=== PATIENT | male | born 1960 | race Caucasian/White ===

== ENCOUNTER 2022-12-24 21:50 | Inpatient (IN) ==
[2022-12-24 22:32] LABS: Basophils # (auto) 0.03 K/uL (0-0.2); Basophils % (auto) 0.3 %; Eosinophils # (auto) 0.04 K/uL (0-0.50); Eosinophils % (auto) 0.4 %; Hematocrit (blood only) 41.5 % (42.0-52.0); Hemoglobin 14.1 g/dl (14.0-18.0); Immature Granulocytes # (auto) 0.07 K/uL (0.01-0.20); Immature Granulocytes % (auto) 0.6 %; Lymphocytes # (auto) 1.37 K/uL (1.2-3.4); Lymphocytes % (auto) 12.5 %; Mean Corpuscular Volume 94.1 fL (80.0-100.0); Mean Platelet Volume 10.3 fL (9.4-12.4); Monocytes # (auto) 0.78 K/uL (0.11-0.59); Monocytes % (auto) 7.1 %; Neutrophils # (auto) 8.66 K/uL (1.40-6.50); Neutrophils % (auto) 79.1 %; Platelet Count 130 K/uL (130-400); RDW Coefficient of Variation 12.9 % (11.5-14.5); RDW Standard Deviation 44.5 fL (36.4-46.3); Red Blood Count 4.41 M/uL (4.70-6.10); White Blood Count 10.95 K/ul (4.8-10.8)
[2022-12-24 22:48] LABS: Albumin Globulin Ratio 1.2 (0.9-2); Albumin Level 4.2 gm/dl (3.4-5.0); Bilirubin,Total 0.6 mg/dl (0.2-1.0); Calcium 9.3 mg/dl (8.5-10.1); Creatinine Clr Calc Pharmacy 73.9 ml/min; Est GFR (African American) 68.4 ml/min; Globulin 3.5 gm/dl (2.5-4.0); Magnesium 1.8 mg/dl (1.7-2.4); Potassium 4.2 mmol/L (3.5-5.1); Total Protein 7.7 gm/dl (6.0-8.3)
[2022-12-24 22:58] LABS: Partial Thromboplastin Ratio 0.9; Partial Thromboplastin Time 23.6 Seconds (21.0-31.0); Prothrombin Time 10.9 Seconds (9.0-12.0)
--- NOTE | 2022-12-24 23:10 | Emergency Department Note ---
History of Present Illness General Chief complaint: Infection Stated complaint: RASH ON LEG, SWELLING IN LEG Time Seen by Provider: 12/24/22 22:47 History of Present Illness 62-year-old male presents emergency department with area of redness that started on the anterior earl yesterday while he was working. Patient is a prisoner. Patient denies being diabetic. Patient states no pain. Patient denies any trau ma. Patient denies being on blood thinners. Patient states that the redness continued to progress from the distal anterior earl to the proximal. Patient states he was wearing a brace yesterday. Home Medications Medication Instructions Recorded Confirmed Type acetaminophen 500 mg tablet 1,000 mg PO TID PRN PAIN/FEVER 12/24/22 12/24/22 History (Tylenol Extra Strength) ciclesonide 80 mcg/actuation 1 puff inhalation BID 12/24/22 12/24/22 History aerosol inhaler (Alvesco) fluoxetine 20 mg tablet 20 mg PO DAILY 12/24/22 12/24/22 History hydrochlorothiazide 25 mg tablet 25 mg PO DAILY 12/24/22 12/24/22 History hydroxyzine pamoate 25 mg capsule 25 mg PO DAILY PRN Anxiety 12/24/22 12/24/22 History (Vistaril) magnesium oxide 400 mg PO DAILY 12/24/22 12/24/22 History mirtazapine 15 mg tablet 15 mg PO HS 12/24/22 12/24/22 History multivitamin,tx-minerals 1 tab PO DAILY 12/24/22 12/24/22 History naproxen 375 mg tablet 375 mg PO BID PRN Pain 12/24/22 12/24/22 History omeprazole 20 mg tablet,delayed 20 mg PO DAILY 12/24/22 12/24/22 History release thiamine HCl (vitamin B1) 50 mg 100 mg PO DAILY 12/24/22 12/24/22 History tablet (Vitamin B-1) Allergies Allergy/AdvReac Type Severity Reaction Status Date / Time clams Allergy Unknown ON MED LIST Verified 12/24/22 23:21 spinach Allergy Unknown ON MED LIST Verified 12/24/22 23:21 Past Med/Surg History Social History Smoking Status: Former smoker Feels Safe at Home: Yes Immunizations: Past medical history denies past surgical history amputation of right hand fingers; back surgery right knee reconstructive surgery Review of Systems A total of 10 systems reviewed and were otherwise negative Constitutional: no fever and no body aches Respiratory: no cough Cardiovascular: no chest pain Integumentary: + rash Physical Exam Vital Signs Vital Signs - 24 hr 12/24/22 21:54 12/25/22 00:00 12/25/22 00:00 Temperature 37.7 C H Temperature Source Temporal Artery Scan Pulse Rate 100 H Pulse Rate [Apical] 82 Respiratory Rate 18 18 Respiratory Effort / Characteristics Non-Labored Non-Labored Spontaneous Respiratory Depth Normal Normal Respiratory Pattern Regular Blood Pressure 129/82 Blood Pressure [Left Arm] 121/76 Blood Pressure Mean 97 Blood Pressure Mean [Left Arm] 91 Blood Pressure Position [Left Arm] Semi-fowlers Pulse Oximetry 93 91 91 Oxygen Delivery Method Room Air Room Air Room Air Sepsis Recent Fever Within 48 Hours No Sepsis New/Unexplained Change in Mental Status No Sepsis Action Taken by Nursing No Action Required GENERAL: Patient is awake alert in no acute distress patient is resting comfortably and showing no signs of anxiety EYES: The conjunctivae are clear. The pupils are round and reactive. EARS, NOSE, MOUTH AND THROAT: The nose is without any evidence of any deformity. Mucous membranes are moist. Tongue is midline. NECK: The neck is nontender and supple. RESPIRATORY: Normal respiratory effort is noted there is no evidence of wheezing rhonchi or rales CARDIOVASCULAR: Regular rate and rhythm noted there no murmurs rubs or gallops normal S1 normal S2. GASTROINTESTINAL: The abdomen is soft. Abdomen is nontender. BACK: No midline tenderness or or step-off noted range of motion in flexion extension as well as rotation no signs of muscle spasm noted MUSCULOSKELETAL/EXTREMITIES: There is no evidence of gross deformity full range of motion is noted in the hips and shoulders. Patient has obvious amputations of the ring and small finger of the right hand; patient has multiple surgical scars on right knee the right lower extremity in the anterior earl had violaceous rash that is nonblanchable there is no tenderness there is no crepitance there is no significant swelling the calf is nontender the patient is neurovascularly intact distally there is no lymphangitis proximally SKIN: Positive for skin rash right anterior earl that is violaceous in nature and is nonblanchable no obvious purpura NEUROLOGIC: Patient is awake alert and oriented x3 strength is symmetric Psych normal affect Course Reevaluation(s) Reevaluation #1: Patient was started on IV Zosyn and vancomycin, the case was discussed with the [facility] hospitalist for admission Time: 23:54 Consultations Consultation #1: [facility] hospitalist for admission, accepts the patient for right lower extremity cellulitis Time: 23:54 Administered Medications Sodium Chloride (Nss 1000ml) 1,000 mls @ 100 mls/hr IV .Q10H ONE Stop: 12/25/22 09:18 Last Admin: 12/24/22 23:51 Dose: 100 mls/hr Documented By: KANE Discontinued Medications Acetaminophen (Acetaminophen 325 Mg Tab) 650 mg PO NOW STA Stop: 12/24/22 23:18 Last Admin: 12/24/22 23:51 Dose: 650 mg Documented By: KANE Piperacillin Sod/Tazobactam Sod (Zosyn) 4.5 gm in 120 mls @ 240 mls/hr IV NOW ONE Stop: 12/24/22 23:40 Last Admin: 12/24/22 23:51 Dose: 240 mls/hr Documented By: KANE Medical Decision Making Medical Records Attestation: I reviewed the patient's medical records. Home Medications Current Medication List: was personally reviewed by me Laboratory Data Attestation: I reviewed the patient's lab results. Patient's lab work is reviewed by me and unremarkable 12/24/22 22:12 12/24/22 22:12 Lab Results 12/24/22 12/24/22 12/24/22 Range/Units 22:12 22:12 22:12 WBC 10.95 H (4.8-10.8) K/ul RBC 4.41 L (4.70-6.10) M/uL Hgb 14.1 (14.0-18.0) g/dl Hct 41.5 L (42.0-52.0) % MCV 94.1 (80.0-100.0) fL MCH 32.0 (25.0-34.0) pg MCHC 34.0 (32.0-36.0) g/dL RDW Std Deviation 44.5 (36.4-46.3) fL RDW Coeff of Cory 12.9 (11.5-14.5) % Plt Count 130 (130-400) K/uL MPV 10.3 (9.4-12.4) fL Immature Gran % (Auto) 0.6 % Neut % (Auto) 79.1 % Lymph % (Auto) 12.5 % Ocean % (Auto) 7.1 % Eos % (Auto) 0.4 % Baso % (Auto) 0.3 % Neut # (Auto) 8.66 H (1.40-6.50) K/uL Lymph # (Auto) 1.37 (1.2-3.4) K/uL Ocean # (Auto) 0.78 H (0.11-0.59) K/uL Eos # (Auto) 0.04 (0-0.50) K/uL Baso # (Auto) 0.03 (0-0.2) K/uL Immature Gran # (Auto) 0.07 (0.01-0.20) K/uL PT 10.9 (9.0-12.0) Seconds INR 1.0 (0.9-1.1) APTT 23.6 (21.0-31.0) Seconds PTT Ratio 0.9 Sodium 135 L (136-145) mmol/L Potassium 4.2 (3.5-5.1) mmol/L Chloride 100 (98-107) mmol/L Carbon Dioxide 26 (21-32) mmol/L Anion Gap 9 (3-11) BUN 31 H (6-23) mg/dl Creatinine 1.29 (0.6-1.4) mg/dl Est Cr Clr Drug Dosing 73.9 ml/min Est GFR ( Amer) 68.4 ml/min Est GFR (Non-Af Amer) 59.0 ml/min BUN/Creatinine Ratio 24.0 H (10-20) Glucose 125 H (70-99(Fasting)) mg/dl Lactate (0.4-2.0) mmol/L Calcium 9.3 (8.5-10.1) mg/dl Magnesium 1.8 (1.7-2.4) mg/dl Total Bilirubin 0.6 (0.2-1.0) mg/dl AST 32 (13-39) U/L ALT 29 (7-52) U/L Alkaline Phosphatase 53 (34-104) U/L Total Protein 7.7 (6.0-8.3) gm/dl Albumin 4.2 (3.4-5.0) gm/dl Globulin 3.5 (2.5-4.0) gm/dl Albumin/Globulin Ratio 1.2 (0.9-2) 12/24/22 Range/Units 23:44 WBC (4.8-10.8) K/ul RBC (4.70-6.10) M/uL Hgb (14.0-18.0) g/dl Hct (42.0-52.0) % MCV (80.0-100.0) fL MCH (25.0-34.0) pg MCHC (32.0-36.0) g/dL RDW Std Deviation (36.4-46.3) fL RDW Coeff of Cory (11.5-14.5) % Plt Count (130-400) K/uL MPV (9.4-12.4) fL Immature Gran % (Auto) % Neut % (Auto) % Lymph % (Auto) % [place] % (Auto) % Eos % (Auto) % Baso % (Auto) % Neut # (Auto) (1.40-6.50) K/uL Lymph # (Auto) (1.2-3.4) K/uL [place] # (Auto) (0.11-0.59) K/uL Eos # (Auto) (0-0.50) K/uL Baso # (Auto) (0-0.2) K/uL Immature Gran # (Auto) (0.01-0.20) K/uL PT (9.0-12.0) Seconds INR (0.9-1.1) APTT (21.0-31.0) Seconds PTT Ratio Sodium (136-145) mmol/L Potassium (3.5-5.1) mmol/L Chloride (98-107) mmol/L Carbon Dioxide (21-32) mmol/L Anion Gap (3-11) BUN (6-23) mg/dl Creatinine (0.6-1.4) mg/dl Est Cr Clr Drug Dosing ml/min Est GFR ( Amer) ml/min Est GFR (Non-Af Amer) ml/min BUN/Creatinine Ratio (10-20) Glucose (70-99(Fasting)) mg/dl Lactate 0.8 (0.4-2.0) mmol/L Calcium (8.5-10.1) mg/dl Magnesium (1.7-2.4) mg/dl Total Bilirubin (0.2-1.0) mg/dl AST (13-39) U/L ALT (7-52) U/L Alkaline Phosphatase (34-104) U/L Total Protein (6.0-8.3) gm/dl Albumin (3.4-5.0) gm/dl Globulin (2.5-4.0) gm/dl Albumin/Globulin Ratio (0.9-2) ECG Data Attestation: I personally reviewed and interpreted this ECG as follows: Additional Comments: EKG interpreted by me normal sinus rhythm rate of 83 nonspecific T abnormality no obvious ST segment elevation normal intervals normal axis MDM Narrative Medical decision making differential diagnosis includes cellulitis, allergic reaction, local reaction do not suspect necrotizing fasciitis Plan is to check labs Started on IV antibiotics Admitted to the hospital for further evaluation and treatment Impression & Plan Cellulitis of right anterior lower leg Discharge Plan Visit Data Chief Complaint: Infection Stated Complaint: RASH ON LEG, SWELLING IN LEG ED Provider: Andrew Wright Discharge Problem: Cellulitis of right anterior lower leg Patient Disposition: Admitted As Inpatient Forms Stand Alone Forms: My [facility] Prescriptions Prescriptions: No Action naproxen 375 mg Tablet 375 mg PO BID PRN (Reason: Pain) acetaminophen [Tylenol Extra Strength] 500 mg Tablet 1,000 mg PO TID PRN (Reason: PAIN/FEVER) fluoxetine 20 mg Tablet 20 mg PO DAILY hydrochlorothiazide 25 mg Tablet 25 mg PO DAILY mirtazapine 15 mg Tablet 15 mg PO HS thiamine HCl (vitamin B1) [Vitamin B-1] 50 mg Tablet 100 mg PO DAILY hydroxyzine pamoate [Vistaril] 25 mg Capsule 25 mg PO DAILY PRN (Reason: Anxiety) Thera M Tablet 1 tab PO DAILY omeprazole 20 mg Tablet,Delayed Release (Dr/Ec) 20 mg PO DAILY Alvesco 80 mcg/actuation Hfa Aerosol Inhaler 1 puff INHALATION BID magnesium oxide 400 mg magnesium Tablet 400 mg PO DAILY Referrals Referrals: PCP,NO [Physician] -
[2022-12-24] MEDS ORDERED: PIPERACILLIN/TAZOBACTAM 4.5 GM/120 ML BAG IV ONE (23:11)
[2022-12-24] MEDS ORDERED: VANCOMYCIN HCL 2,250 MG in SODIUM CHLORIDE 0.9% 500 ML IV ONE (23:11)
[2022-12-24] MEDS ORDERED: VANCOMYCIN CONSULT ACTIVE PRN (23:11)
[2022-12-24] MEDS ORDERED: ACETAMINOPHEN 325 MG TAB PO STA (23:17)
[2022-12-24] MEDS ORDERED: SODIUM CHLORIDE 0.9% 1000ML 1,000 ML IV ONE (23:19)
[2022-12-24] MEDS ORDERED: DOXYCYCLINE HYCLATE 100 MG in DEXTROSE 5% 100 ML IV STA (23:22)
[2022-12-24] MEDS ORDERED: Patient's ALLERGY Info needs ENTERED SCH (23:30)
--- NOTE | 2022-12-24 23:48 | History & Physical Report ---
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 GMF CS, Doxycycline Local measures for cellulitis Orthopedics consult Re: Right prepatellar swelling Check hemoglobin A1c DVT prophylaxis with SCDs Re: Borderline thrombocytopenia Full code Text document was generated using [employer] voice recognition software. It may contain grammatical or spelling errors. Kindly contact undersigned for clarification of any documentation item in question. History of Present Illness Chief Complaint: Right lower leg swelling Primary Care Provider: [facility] History obtained from patient and records. Medical history significant for COPD, hypertension, Ford's esophagus, past tobacco/alcohol abuse. 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 No recollection of trauma. No pruritus, no fever, no chills. Patient denies chest pain, SOB. No prior episodes. Patient later noted swelling in front of right knee not much worsened by motion. Zosyn administered at the ER. 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 Allergies Allergy/AdvReac Type Severity Reaction Status Date / Time clams Allergy Unknown ON MED LIST Verified 12/24/22 23:21 spinach Allergy Unknown ON MED LIST Verified 12/24/22 23:21 Home Medications Medication Instructions Recorded Confirmed Type acetaminophen 500 mg tablet 1,000 mg PO TID PRN PAIN/FEVER 12/24/22 12/24/22 History (Tylenol Extra Strength) ciclesonide 80 mcg/actuation 1 puff inhalation BID 12/24/22 12/24/22 History aerosol inhaler (Alvesco) fluoxetine 20 mg tablet 20 mg PO DAILY 12/24/22 12/24/22 History hydrochlorothiazide 25 mg tablet 25 mg PO DAILY 12/24/22 12/24/22 History hydroxyzine pamoate 25 mg capsule 25 mg PO DAILY PRN Anxiety 12/24/22 12/24/22 History (Vistaril) magnesium oxide 400 mg PO DAILY 12/24/22 12/24/22 History mirtazapine 15 mg tablet 15 mg PO HS 12/24/22 12/24/22 History multivitamin,tx-minerals 1 tab PO DAILY 12/24/22 12/24/22 History naproxen 375 mg tablet 375 mg PO BID PRN Pain 12/24/22 12/24/22 History omeprazole 20 mg tablet,delayed 20 mg PO DAILY 12/24/22 12/24/22 History release thiamine HCl (vitamin B1) 50 mg 100 mg PO DAILY 12/24/22 12/24/22 History tablet (Vitamin B-1) Past Med/Surg History Social History Smoking Status: Former smoker Second Hand Exposure: No; Do You Dip or Chew Tobacco: No; Tobacco Cessation Education Requested by Patient: No Hx Alcohol Use: Yes Alcohol type: beer Hx Substance Use: Yes Last Used Substance: Unknown Substance Use Type Other:: 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 Other Information That Helps Us Care for You: No Feels Safe at Home: Yes Safety Concerns: Feels Safe At This Time Assistive Devices: None Review of Systems Review of Systems: As per HPI, all other systems reviewed and negative Physical Exam Physical Exam: GENERAL: Comfortable, pleasant, obese, no respiratory distress SKIN: Normal color, warm HEENT: [place] palpebral conjunctivae, no ptosis, moist buccal mucosa NECK : Supple, short neck, no tenderness CHEST : Decreased breath sounds, no tenderness HEART : RRR, no obvious murmurs ABDOMEN: Some distention, nontender EXTREMITIES : Petechial rash RLE, swelling over right anterior knee NEUROLOGIC : Coherent, no facial asymmetry, no other gross focality Results & Data Results & Data ([facility]) Vital Signs (Past 12 Hours) Vital Signs Temp Pulse Resp BP Pulse Ox O2 Del Method 12/24/22 21:54 37.7 C H 100 H 18 129/82 93 Room Air Laboratory Results Laboratory Results WBC 10.95 K/ul (4.8-10.8) H 12/24/22 22:12 RBC 4.41 M/uL (4.70-6.10) L 12/24/22 22:12 Hgb 14.1 g/dl (14.0-18.0) 12/24/22 22:12 Hct 41.5 % (42.0-52.0) L 12/24/22 22:12 MCV 94.1 fL (80.0-100.0) 12/24/22 22:12 MCH 32.0 pg (25.0-34.0) 12/24/22 22:12 MCHC 34.0 g/dL (32.0-36.0) 12/24/22 22:12 RDW Std Deviation 44.5 fL (36.4-46.3) 12/24/22 22:12 RDW Coeff of Cory 12.9 % (11.5-14.5) 12/24/22 22:12 Plt Count 130 K/uL (130-400) 12/24/22 22:12 MPV 10.3 fL (9.4-12.4) 12/24/22 22:12 Immature Gran % (Auto) 0.6 % 12/24/22 22:12 Neut % (Auto) 79.1 % 12/24/22 22:12 Lymph % (Auto) 12.5 % 12/24/22 22:12 [place] % (Auto) 7.1 % 12/24/22 22:12 Eos % (Auto) 0.4 % 12/24/22 22:12 Baso % (Auto) 0.3 % 12/24/22 22:12 Neut # (Auto) 8.66 K/uL (1.40-6.50) H 12/24/22 22:12 Lymph # (Auto) 1.37 K/uL (1.2-3.4) 12/24/22 22:12 [place] # (Auto) 0.78 K/uL (0.11-0.59) H 12/24/22 22:12 Eos # (Auto) 0.04 K/uL (0-0.50) 12/24/22 22:12 Baso # (Auto) 0.03 K/uL (0-0.2) 12/24/22 22:12 Immature Gran # (Auto) 0.07 K/uL (0.01-0.20) 12/24/22 22:12 PT 10.9 Seconds (9.0-12.0) 12/24/22 22:12 INR 1.0 (0.9-1.1) 12/24/22 22:12 APTT 23.6 Seconds (21.0-31.0) 12/24/22 22:12 PTT Ratio 0.9 12/24/22 22:12 Sodium 135 mmol/L (136-145) L 12/24/22 22:12 Potassium 4.2 mmol/L (3.5-5.1) 12/24/22 22:12 Chloride 100 mmol/L (98-107) 12/24/22 22:12 Carbon Dioxide 26 mmol/L (21-32) 12/24/22 22:12 Anion Gap 9 (3-11) 12/24/22 22:12 BUN 31 mg/dl (6-23) H 12/24/22 22:12 Creatinine 1.29 mg/dl (0.6-1.4) 12/24/22 22:12 Est Cr Clr Drug Dosing 73.9 ml/min 12/24/22 22:12 Est GFR ( Amer) 68.4 ml/min 12/24/22 22:12 Est GFR (Non-Af Amer) 59.0 ml/min 12/24/22 22:12 BUN/Creatinine Ratio 24.0 (10-20) H 12/24/22 22:12 Glucose 125 mg/dl (70-99(Fasting)) H 12/24/22 22:12 Calcium 9.3 mg/dl (8.5-10.1) 12/24/22 22:12 Magnesium 1.8 mg/dl (1.7-2.4) 12/24/22 22:12 Total Bilirubin 0.6 mg/dl (0.2-1.0) 12/24/22 22:12 AST 32 U/L (13-39) 12/24/22 22:12 ALT 29 U/L (7-52) 12/24/22 22:12 Alkaline Phosphatase 53 U/L (34-104) 12/24/22 22:12 Total Protein 7.7 gm/dl (6.0-8.3) 12/24/22 22:12 Albumin 4.2 gm/dl (3.4-5.0) 12/24/22 22:12 Globulin 3.5 gm/dl (2.5-4.0) 12/24/22 22:12 Albumin/Globulin Ratio 1.2 (0.9-2) 12/24/22 22:12 Diagnostic Findings US RLE EXTREMITY (nonvascular) initial read: No loculated collection. Irregular echogenic structure with posterior acoustic shadowing anterior to the right calf may represent gas. Radiographic correlation recommended. US VENOUS RIGHT LOWER EXTREMITY initial read: No evidence of deep venous thrombosis. Enlarged benign-appearing lymph nodes in the right groin. CT right tibia-fibula initial read: No fracture. Severe osteoarthritis. The shadowing echogenic structures seen on sonography correspond to bone spurts and dystrophic ossification. No soft tissue gas seen. Subcutaneous edema in the distal leg. No loculated collection. Multiple mildly dilated superficial veins. No evidence of osteomyelitis. Suprapatellar effusion with a calcified synovial body laterally. EKG as per my interpretation :Rate 85, NSR, normal axis, diffuse T wave flattening
[2022-12-25] MEDS ORDERED: PROMETHAZINE HCL 12.5 MG in SODIUM CHLORIDE 0.9% 50 ML IV PRN (02:22)
[2022-12-25] MEDS ORDERED: hydrOXYzine HCl 25 MG TAB PO PRN (02:22)
[2022-12-25 02:25] LABS: Appearance Urine Clear (Clear); Bacteria Urine Automated Negative (Negative); Bilirubin Urine Negative (Negative); Blood Urine Negative (Negative); Cast Urine Automated 0 /lpf (0-5); Color Urine Yellow; Glucose Urine UA Negative (Negative); Ketones Urine Negative (Negative); Leukocyte Esterase Urine Negative (Negative); Nitrite Urine Negative (Negative); Protein Urine Trace (Negative); RBC Urine Automated 0-4 /hpf (0-4); Specific Gravity Urine 1.019 (1.000-1.030); Urobilinogen Urine Negative (Negative)
[2022-12-25] MEDS ORDERED: OPTIRAY 350 100ml IV ONE (04:04)
[2022-12-25 06:39] LABS: BUN Creatinine Ratio 23.1 (10-20); Creatinine Clr Calc Pharmacy 88.9 ml/min; Est GFR (African American) 84.8 ml/min; Est GFR (Non-African American) 73.2 ml/min; Potassium 3.3 mmol/L (3.5-5.1)
[2022-12-25 06:59] LABS: Hematocrit (blood only) 40.9 % (42.0-52.0); Hemoglobin 13.9 g/dl (14.0-18.0); Mean Corpuscular Hemoglobin 31.8 pg (25.0-34.0); Mean Corpuscular Volume 93.6 fL (80.0-100.0); Mean Platelet Volume 10.8 fL (9.4-12.4); Platelet Count 120 K/uL (130-400); RDW Coefficient of Variation 12.8 % (11.5-14.5); RDW Standard Deviation 43.5 fL (36.4-46.3); Red Blood Count 4.37 M/uL (4.70-6.10); White Blood Count 8.16 K/ul (4.8-10.8)
[2022-12-25 07:00] LABS: Basophils # (auto) 0.03 K/uL (0-0.2); Basophils % (auto) 0.4 %; Eosinophils # (auto) 0.09 K/uL (0-0.50); Eosinophils % (auto) 1.1 %; Immature Granulocytes # (auto) 0.05 K/uL (0.01-0.20); Immature Granulocytes % (auto) 0.6 %; Lymphocytes # (auto) 1.31 K/uL (1.2-3.4); Lymphocytes % (auto) 16.1 %; Monocytes # (auto) 0.57 K/uL (0.11-0.59); Neutrophils # (auto) 6.11 K/uL (1.40-6.50); Neutrophils % (auto) 74.8 %; Platelet Estimate Decreased (Normal)
--- NOTE | 2022-12-25 07:05 | CT Scan Report ---
CT tib/fib RT w con HISTORY: 62 years-old Male swelling ro abscess acute pain and swelling of the right knee COMPARISON: Knee radiographs and ultrasound studies of same day TECHNIQUE: Multiple axial CT images of the right tibia and fibula were obtained following the intrave nous administration of 87 mL Optiray 350. A dose lowering technique was used consistent with the prin cipals of JAG. FINDINGS: Chondrocalcinosis with moderate tricompartmental osteoarthritis of the knee. Postoperative changes billings ggestive of prior ACL repair with tunneling of the distal femur and proximal tibia. Mild to moderate osteoarthritis of the ankle. 8 mm osteochondral defect of the lateral talar dome. No acute fracture, dislocation or osseous erosion identified. Synovial thickening with small to moderate joint effusion. Intra-articular loose bodies measure up to 1.9 cm within the lateral joint space. Numerous corticated ossifications are noted along the posteri or aspect of the knee which may also represent loose bodies measuring up to approximately 2 cm. Mild diffuse subcutaneous edema of the imaged lower leg. No intramuscular fluid collections identified. IMPRESSION: 1. Osteoarthritis of the knee and ankle without acute fracture or dislocation identified. 2. Synovial thickening with small to moderate joint effusion of the knee, likely degenerative. Mansoor us intra-articular loose bodies. 3. Nonspecific subcutaneous edema of the lower leg. No fluid collections. ACT 112: Negative or not required by law. The above report was generated using voice recognition software. It may contain grammatical, syntax o r spelling errors. Electronically signed by: Gregory Rodriguez M.D. 12/25/2022 7:04 AM
--- NOTE | 2022-12-25 07:06 | Ultrasound Report ---
US extremity non-vascular ltd HISTORY: 62 years-old Male R lower leg (below the knee) swelling ro absce acute pain and swelling of the lower leg COMPARISON: CT of same day TECHNIQUE: Multiple real-time sonographic images of the right lower leg soft tissues were obtained as sessing grayscale appearance and color flow FINDINGS: Nonspecific subcutaneous edema. Postoperative cortical thickening of the proximal tibial diaphysis. N o discrete fluid collections. IMPRESSION: Mild nonspecific subcutaneous edema. No discrete fluid collections. ACT 112: Negative or not required by law. The above report was generated using voice recognition software. It may contain grammatical, syntax o r spelling errors. Electronically signed by: Gregory Rodriguez M.D. 12/25/2022 7:05 AM
--- NOTE | 2022-12-25 07:06 | Ultrasound Report ---
RIGHT LOWER EXTREMITY VENOUS DOPPLER CLINICAL HISTORY: Right lower extremity swelling COMPARISON STUDY: No previous studies for comparison. TECHNIQUE: Sonography of the deep venous system of the right lower extremity was performed. Compress ion and augmentation were evaluated. FINDINGS: The right common femoral, superficial femoral and popliteal veins were compressible. Augme ntation was normal. Flow was shown within the deep calf vessels. Benign-appearing right inguinal lymp h nodes are incidentally noted. IMPRESSION: No evidence of deep venous thrombus within the right lower extremity. ACT 112: Negative or not required by law. Electronically signed by: rAtie Bennett M.D. 12/25/2022 7:05 AM
--- NOTE | 2022-12-25 07:15 | XRay Report ---
XR knee RT 3V HISTORY: 62 years-old Male R knee swelling acute pain and swelling of the right knee COMPARISON: CT right tibia and fibula same day TECHNIQUE: 3 views of the right knee FINDINGS: Moderate tricompartmental osteoarthritis with chondrocalcinosis. Intra-articular loose bodies measure up to approximately 2 cm. Postoperative changes with distal femoral and proximal tibial tunneling. S mall joint effusion with mild circumferential soft tissue prominence. IMPRESSION: 1. No acute fracture or dislocation. 2. Chondrocalcinosis with moderate osteoarthritis. 3. Numerous intra-articular loose bodies. 4. Small joint effusion. ACT 112: Negative or not required by law. The above report was generated using voice recognition software. It may contain grammatical, syntax o r spelling errors. Electronically signed by: Gregory Rodriguez M.D. 12/25/2022 7:13 AM
[2022-12-25 07:38] LABS: Estimated Average Glucose 126 mg/dl
[2022-12-25] MEDS: PANTOprazole 40 MG TAB PO SCH (08:27)
[2022-12-25] MEDS: CEROVITE ADV FORMULA TAB PO SCH (08:27)
[2022-12-25] MEDS: THIAMINE HCL 100 MG TAB PO SCH (08:27)
[2022-12-25] MEDS: FLUoxetine HCL 20 MG CAP PO SCH (08:27)
[2022-12-25] MEDS: FLUTICASONE FUROATE 100MCG 14 PUFFS/INHALER INH SCH (08:28)
[2022-12-25] MEDS ORDERED: DOXYCYCLINE HYCLATE 100 MG CAP PO SCH (09:00)
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
[2022-12-25 11:19] LABS: A calco-baum cmplx NotReported Not Detected (NotDetected); Bact fragilis Not Reported Not Detected (NotDetected); C auris Not Reported Not Detected (NotDetected); Calbicans Not Reported Not Detected (NotDetected); Candida glabrata Not Reported Not Detected (NotDetected); Candida krusei Not Reported Not Detected (NotDetected); Cneoformans/gatti Not Reported Not Detected (NotDetected); Cparapsilosis Not Reported Not Detected (NotDetected); Ctropicalis Not Reported Not Detected (NotDetected); E cloacae compx Not Reported Not Detected (NotDetected); Efaecalis Not Reported Not Detected (NotDetected); Efaecium Not Reported Not Detected (NotDetected); Enterobacterales Not Reported Not Detected (NotDetected); Escherichia coli Not Reported Not Detected (NotDetected); H influenzae Not Reported Not Detected (NotDetected); K aerogenes Not Reported Not Detected (NotDetected); Koxytoca Not Reported Not Detected (NotDetected); Kpneumoniae grp Not Reported Not Detected (NotDetected); Lmonocyt Not Reported Not Detected (NotDetected); N meningitidis Not Reported Not Detected (NotDetected); P aeruginosa Not Reported Not Detected (NotDetected); Proteus spp Not Reported Not Detected (NotDetected); Salmonella spp Not Reported Not Detected (NotDetected); Smarcescens Not Reported Not Detected (NotDetected); Staph lugdunensis Not Reported Not Detected (NotDetected); Staph spp. Not Reported Not Detected (NotDetected); Staphaureus Not Reported Not Detected (NotDetected); Staphepi Not Reported Not Detected (NotDetected); Stenmaltophilia Not Reported Not Detected (NotDetected); Strep agal(GrpB) Not Reported Not Detected (NotDetected); Strep pneum Not Reported Not Detected (NotDetected); Strep pyog (GrpA) Not Reported Not Detected (NotDetected); Strep spp Not Reported DETECTED (NotDetected)
[2022-12-25 11:33] LABS: Streptococcus spp DETECTED (NotDetected)
[2022-12-25] MEDS ORDERED: POTASSIUM CHLORIDE CRTAB 20 MEQ TABCR PO STA (12:41)
[2022-12-25] MEDS: ACETAMINOPHEN 325 MG TAB PO PRN ×2 (13:33→19:35)
[2022-12-25] MEDS: cefTRIAXone SODIUM 2,000 MG in DEXTROSE 5% 50 ML IV SCH (13:33)
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
[2022-12-25] MEDS: IBUPROFEN 200 MG TAB PO PRN ×2 (15:27→21:50)
--- NOTE | 2022-12-25 15:30 | Electrocardiogram Report ---
Test Reason : Blood Pressure : / mmHG Vent. Rate : 083 BPM Atrial Rate : 083 BPM P-R Int : 168 ms QRS Dur : 096 ms QT Int : 366 ms P-R-T Axes : 034 035 061 degrees QTc Int : 430 ms Normal sinus rhythm Nonspecific T wave abnormality Abnormal ECG No previous ECGs available Confirmed by Rodger Lopez ([id number]) on 12/25/2022 3:29:29 PM Referred By: REFERRED SELF Confirmed By:Rodger Lopez
[2022-12-25] MEDS: MIRTAZAPINE TAB 15 MG TAB PO SCH (19:36)
[2022-12-26 06:17] LABS: BUN Creatinine Ratio 16.1 (10-20); Calcium 9.2 mg/dl (8.5-10.1); Creatinine Clr Calc Pharmacy 85.7 ml/min; Est GFR (African American) 81.2 ml/min; Potassium 3.9 mmol/L (3.5-5.1)
[2022-12-26 06:42] LABS: Hematocrit (blood only) 39.8 % (42.0-52.0); Hemoglobin 13.2 g/dl (14.0-18.0); Mean Corpuscular Hemoglobin 31.4 pg (25.0-34.0); Mean Corpuscular Hgb Conc 33.2 g/dL (32.0-36.0); Mean Corpuscular Volume 94.5 fL (80.0-100.0); Mean Platelet Volume 10.9 fL (9.4-12.4); Platelet Count 135 K/uL (130-400); RDW Coefficient of Variation 13.2 % (11.5-14.5); Red Blood Count 4.21 M/uL (4.70-6.10); White Blood Count 8.56 K/ul (4.8-10.8)
[2022-12-26] MEDS: THIAMINE HCL 100 MG TAB PO SCH (08:58)
[2022-12-26] MEDS: CEROVITE ADV FORMULA TAB PO SCH (08:58)
[2022-12-26] MEDS: FLUTICASONE FUROATE 100MCG 14 PUFFS/INHALER INH SCH (08:58)
[2022-12-26] MEDS: FLUoxetine HCL 20 MG CAP PO SCH (08:58)
[2022-12-26] MEDS: PANTOprazole 40 MG TAB PO SCH (08:58)
[2022-12-26] MEDS: ACETAMINOPHEN 325 MG TAB PO PRN (09:05)
[2022-12-26] MEDS: IBUPROFEN 200 MG TAB PO PRN (09:05)
[2022-12-26] MEDS ORDERED: traMADol HCL 50 MG TABLET PO PRN (11:13)
[2022-12-26] MEDS: cefTRIAXone SODIUM 2,000 MG in DEXTROSE 5% 50 ML IV SCH (13:19)
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
--- NOTE | 2022-12-26 14:29 | Orthopedic Progress Note ---
Date of Service December 26, 2022 Assessment & Plan (1) Right knee pain: Plan: Hospital day 2 cellulitis right lower extremity Resolution of the cellulitis appears to be slowly going in certain areas. Prepatellar bursal area with less swelling and minimal tenderness. No overt knee pain. Patient seen by Dr. Rizo today and feels there is no need for aspiration of the knee or prepatellar bursal area. Continue IV antibiotics. Elevation of the right lower extremity. Orthopedics will sign off at this time. Please call with any questions. Admission and Anticipated Discharge Date Admission Date: December 24, 2022 Subjective Pt lying in bed awake and alert. No complaints today. Feels that his leg has gotten a little bit better. States that his knee is feeling okay today. Patient states that Dr. Rizo has been in to see him today. Physical Exam Physical Exam: On exam, the little bit of swelling he had over the prepatellar bursa appears to have gotten better. No erythema noted in this area. No pain on palpation of his right knee. Continues with cellulitis of the right lower extremity. Some of the areas anteriorly are receding from where the cellulitic area that has been marked and he does have some erythema that is traveling posterior. He appears to have less swelling of his right ankle area. No erythema in that area and range of motion within normal limits. Results & Data ([facility]) Vital Signs (Past 12 Hours) Vital Signs Temp Pulse Resp BP Pulse Ox O2 Del Method 12/26/22 07:15 37.5 C 85 16 126/75 90 Room Air
[2022-12-26] MEDS: ENOXAPARIN INJ 40 MG/0.4 ML SYR SQ SCH (17:02)
[2022-12-26] MEDS: ACETAMINOPHEN 500 MG TAB PO SCH ×2 (17:02→23:32)
[2022-12-26] MEDS: MIRTAZAPINE TAB 15 MG TAB PO SCH (19:28)
[2022-12-26] MEDS: traMADol HCL 50 MG TABLET PO PRN (19:36)
[2022-12-27] MEDS: traMADol HCL 50 MG TABLET PO PRN ×4 (00:26→19:52)
[2022-12-27] MEDS: IBUPROFEN 200 MG TAB PO PRN ×4 (00:26→22:16)
[2022-12-27 06:24] LABS: Basophils # (auto) 0.04 K/uL (0-0.2); Basophils % (auto) 0.6 %; Eosinophils # (auto) 0.26 K/uL (0-0.50); Eosinophils % (auto) 3.6 %; Hematocrit (blood only) 37.9 % (42.0-52.0); Hemoglobin 12.5 g/dl (14.0-18.0); Immature Granulocytes # (auto) 0.06 K/uL (0.01-0.20); Immature Granulocytes % (auto) 0.8 %; Lymphocytes # (auto) 1.75 K/uL (1.2-3.4); Lymphocytes % (auto) 24.5 %; Mean Corpuscular Hemoglobin 31.3 pg (25.0-34.0); Mean Corpuscular Volume 94.8 fL (80.0-100.0); Mean Platelet Volume 10.5 fL (9.4-12.4); Monocytes # (auto) 0.98 K/uL (0.11-0.59); Monocytes % (auto) 13.7 %; Neutrophils # (auto) 4.06 K/uL (1.40-6.50); Neutrophils % (auto) 56.8 %; Platelet Count 153 K/uL (130-400); RDW Standard Deviation 45.4 fL (36.4-46.3); White Blood Count 7.15 K/ul (4.8-10.8)
[2022-12-27 06:44] LABS: BUN Creatinine Ratio 20.8 (10-20); Creatinine Clr Calc Pharmacy 90.6 ml/min; Est GFR (African American) 86.8 ml/min; Est GFR (Non-African American) 74.8 ml/min; Potassium 3.9 mmol/L (3.5-5.1)
[2022-12-27] MEDS: FLUoxetine HCL 20 MG CAP PO SCH (08:48)
[2022-12-27] MEDS: CEROVITE ADV FORMULA TAB PO SCH (08:48)
[2022-12-27] MEDS: ACETAMINOPHEN 500 MG TAB PO SCH ×2 (08:48→15:38)
[2022-12-27] MEDS: THIAMINE HCL 100 MG TAB PO SCH (08:49)
[2022-12-27] MEDS: PANTOprazole 40 MG TAB PO SCH (08:49)
[2022-12-27] MEDS: FLUTICASONE FUROATE 100MCG 14 PUFFS/INHALER INH SCH (08:49)
--- NOTE | 2022-12-27 09:39 | Cardiology Consultation ---
Date of Consultation December 27, 2022 Assessment & Plan (1) Bacteremia due to Streptococcus: - Patient presented with right lower extremity cellulitis, and has been found to have streptococcal bacteremia. His transthoracic echocardiogram is suboptimal, with poor visualization of the aortic valve specifically. Cardiology consulted for consideration of STACIA. The patient states that he has a hole in his roof of his mouth that occurred during adulthood. This is covered by his upper denture. He denies any difficulty swallowing. He does have a past history of alcohol use, but does not have a known history of esophageal varices from the information available. Patient agreeable to transesophageal echocardiogram which will be performed when he can be scheduled in the heart center with the assistance of anesthesia. Patient agreeable. History of Present Illness Attending Physician: Abdiel Montgomery MD History of Present Illness Mr Levin is a 62 year old inmate seen in cardiology consultation per the request of LEXI Richardson for the evaluation of streptococcal bacteremia. The patient has a history of prediabetes. Leading up to his hospital stay, he had noticed abrupt onset of right lower extremity erythema consistent with cellulitis. Upon presentation to the emergency department on 12/24/2022, he was found to have a mild fever of 37.7, that has not reoccurred since hospitalization. 11/28 blood cultures has yielded growth of group B beta-hemolytic strep. He is currently on IV ceftriaxone and has been evaluated via telemedicine by infectious disease. A transthoracic echocardiogram was performed and the aortic valve was suboptimally visualized due to poor acoustic windows. Cardiology consulted to discuss proceeding with transesophageal echocardiogram. Patient denies any history of heart disease. He denies any current chest discomfort or shortness of breath. He is assessed on the third floor, room 324 and is not on telemetry at present. Allergies Allergy/AdvReac Type Severity Reaction Status Date / Time clams Allergy Unknown ON MED LIST Verified 12/24/22 23:21 spinach Allergy Unknown ON MED LIST Verified 12/24/22 23:21 Home Medications Medication Instructions Recorded Confirmed Type acetaminophen 500 mg tablet 1,000 mg PO TID PRN PAIN/FEVER 12/24/22 12/24/22 History (Tylenol Extra Strength) ciclesonide 80 mcg/actuation 1 puff inhalation BID 12/24/22 12/24/22 History aerosol inhaler (Alvesco) fluoxetine 20 mg tablet 20 mg PO DAILY 12/24/22 12/24/22 History hydrochlorothiazide 25 mg tablet 25 mg PO DAILY 12/24/22 12/24/22 History hydroxyzine pamoate 25 mg capsule 25 mg PO DAILY PRN Anxiety 12/24/22 12/24/22 History (Vistaril) magnesium oxide 400 mg PO DAILY 12/24/22 12/24/22 History mirtazapine 15 mg tablet 15 mg PO HS 12/24/22 12/24/22 History multivitamin,tx-minerals 1 tab PO DAILY 12/24/22 12/24/22 History naproxen 375 mg tablet 375 mg PO BID PRN Pain 12/24/22 12/24/22 History omeprazole 20 mg tablet,delayed 20 mg PO DAILY 12/24/22 12/24/22 History release thiamine HCl (vitamin B1) 50 mg 100 mg PO DAILY 12/24/22 12/24/22 History tablet (Vitamin B-1) Patient History Social History Smoking Status: Former smoker Second Hand Exposure: No; Do You Dip or Chew Tobacco: No; Tobacco Cessation Education Requested by Patient: No Hx Alcohol Use: Yes Alcohol type: beer Hx Substance Use: Yes Last Used Substance: Unknown Substance Use Type Other:: 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 Preferred Language: Tongan Communication Ability: Effective Ict Managers Required: No Beliefs That Will Affect Care: None Current Living Situation Comment: Patient is an inmate. Other Information That Helps Us Care for You: No Feels Safe at Home: Yes Safety Concerns: Feels Safe At This Time Assistive Devices: None Review of Systems Review of Systems: All systems reviewed & are unremarkable except as noted in HPI & below Physical Exam Constitutional: WD/WN, vitals as above Respiratory: no respiratory distress and no labored breathing Auscultation: + wheezes (Mild expiratory wheezing) Cardiovascular: RRR, no murmur, no edema Gastrointestinal (Abdomen): normal bowel sounds, soft, nontender, no hepatosplenomegaly Neurologic: PERRL, EOMI, accommodation nl, no face palsy, no dysarthria Results & Data ([facility]) Vital Signs (Past 12 Hours) Vital Signs Temp Pulse Resp BP Pulse Ox O2 Del Method 12/27/22 08:24 36.7 C 65 18 124/75 93 Room Air 12/26/22 21:45 37.1 C 75 18 131/76 90 Room Air Laboratory Results CBC 12/27/22 Range/Units 05:37 WBC 7.15 (4.8-10.8) K/ul RBC 4.00 L (4.70-6.10) M/uL Hgb 12.5 L (14.0-18.0) g/dl Hct 37.9 L (42.0-52.0) % Plt Count 153 (130-400) K/uL Neut # (Auto) 4.06 (1.40-6.50) K/uL Lymph # (Auto) 1.75 (1.2-3.4) K/uL [place] # (Auto) 0.98 H (0.11-0.59) K/uL Eos # (Auto) 0.26 (0-0.50) K/uL Baso # (Auto) 0.04 (0-0.2) K/uL Comprehensive Metabolic Panel 12/27/22 Range/Units 05:37 Sodium 138 (136-145) mmol/L Potassium 3.9 (3.5-5.1) mmol/L Chloride 104 (98-107) mmol/L Carbon Dioxide 29 (21-32) mmol/L BUN 22 (6-23) mg/dl Creatinine 1.06 (0.6-1.4) mg/dl Glucose 101 H (70-99(Fasting)) mg/dl Calcium 9.0 (8.5-10.1) mg/dl Diagnostic Findings EKG performed 12/24/2022 reveals normal sinus rhythm at 83 bpm with nonspecific T wave abnormality. Echocardiogram performed 12/25/2022 revealed mild concentric left ventricular pe rjury, LVEF 55 to 60%. Aortic valve was not well-visualized. No significant stenotic or regurgitant heart valve lesions noted.
[2022-12-27] MEDS ORDERED: BENZOCAINE/TETRACAIN/BUTAM 50 APPLN/5 GM CAN EXT ONE (10:42)
--- NOTE | 2022-12-27 10:44 | Anesthesiology Consultation ---
Date of Service December 27, 2022 Assessment & Plan (1) Encounter for pre-operative examination: Chart Review Chart Review: Acceptable Risk for Surgery and Patient NOT seen in Pre Admission Testing Consults Requested none History Surgery Operation Date: 12/27/22 11:00 Proposed Procedures p Transesophageal Echo w/Anesthesia - Kaiden Jacobo DO Height/Weight Height: 5 ft 10 in Weight: 112.1 kg Allergies Allergy/AdvReac Type Severity Reaction Status Date / Time clams Allergy Unknown ON MED LIST Verified 12/24/22 23:21 spinach Allergy Unknown ON MED LIST Verified 12/24/22 23:21 Medications Home Medications Medication Instructions Recorded Confirmed Last Taken acetaminophen 500 mg tablet 1,000 mg PO TID PRN PAIN/FEVER 12/24/22 12/24/22 Unknown (Tylenol Extra Strength) ciclesonide 80 mcg/actuation 1 puff inhalation BID 12/24/22 12/24/22 Unknown aerosol inhaler (Alvesco) fluoxetine 20 mg tablet 20 mg PO DAILY 12/24/22 12/24/22 Unknown hydrochlorothiazide 25 mg tablet 25 mg PO DAILY 12/24/22 12/24/22 Unknown hydroxyzine pamoate 25 mg capsule 25 mg PO DAILY PRN Anxiety 12/24/22 12/24/22 Unknown (Vistaril) magnesium oxide 400 mg PO DAILY 12/24/22 12/24/22 Unknown mirtazapine 15 mg tablet 15 mg PO HS 12/24/22 12/24/22 Unknown multivitamin,tx-minerals 1 tab PO DAILY 12/24/22 12/24/22 Unknown naproxen 375 mg tablet 375 mg PO BID PRN Pain 12/24/22 12/24/22 Unknown omeprazole 20 mg tablet,delayed 20 mg PO DAILY 12/24/22 12/24/22 Unknown release thiamine HCl (vitamin B1) 50 mg 100 mg PO DAILY 12/24/22 12/24/22 Unknown tablet (Vitamin B-1) Active Medications Generic Name Dose Route Start Last Admin Trade Name Freq PRN Reason Stop Dose Admin Acetaminophen 650 mg 12/25/22 03:33 12/26/22 09:05 Acetaminophen 325 Mg Tab PO 01/24/23 03:32 650 mg Q4H PRN Administration pain/fever Acetaminophen 1,000 mg 12/26/22 16:15 12/27/22 08:48 Acetaminophen 500 Mg Tab PO 01/25/23 16:14 1,000 mg Q8H TYLER Administration Enoxaparin Sodium 40 mg 12/26/22 14:30 12/26/22 17:02 Enoxaparin Inj 40 Mg/0.4 Ml Syr SQ 01/25/23 14:29 40 mg Q24H TYLER Administration Fluoxetine HCl 20 mg 12/25/22 09:00 12/27/22 08:48 Fluoxetine Hcl 20 Mg Cap PO 01/24/23 08:59 20 mg DAILY TYLER Administration Fluticasone Furoate 1 puffs 12/25/22 09:00 12/27/22 08:49 Fluticasone Furoate 100mcg 14 Puffs/Inhaler INH 01/24/23 08:59 1 puffs QAM TYLER Administration Ceftriaxone Sodium 2,000 mg/ 70 mls @ 100 mls/hr 12/25/22 12:30 12/26/22 15:04 Dextrose IV 01/08/23 12:29 Infused Q24H TYLER Infusion Protocol Ibuprofen 200 mg 12/25/22 02:22 12/27/22 05:55 Ibuprofen 200 Mg Tab PO 01/24/23 02:21 200 mg Q6H PRN Administration Mild Pain Mirtazapine 15 mg 12/25/22 21:00 12/26/22 19:28 Mirtazapine Tab 15 Mg Tab PO 01/24/23 20:59 15 mg HS TYLER Administration Multivitamins/Minerals 1 tab 12/25/22 09:00 12/27/22 08:48 Cerovite Adv Formula Tab PO 01/24/23 08:59 1 tab DAILY TYLER Administration Pantoprazole Sodium 40 mg 12/25/22 09:00 12/27/22 08:49 Pantoprazole 40 Mg Tab PO 01/24/23 08:59 40 mg DAILY TYLER Administration Thiamine HCl 100 mg 12/25/22 09:00 12/27/22 08:49 Thiamine Hcl 100 Mg Tab PO 01/24/23 08:59 100 mg DAILY TYLER Administration Tramadol HCl 100 mg 12/26/22 16:01 12/27/22 05:55 Tramadol Hcl 50 Mg Tablet PO 01/25/23 11:14 100 mg Q6H PRN Administration moderate pain Social History Smoking Status: Former smoker tobacco type: cigarettes Do You Dip or Chew Tobacco: No Hx Alcohol Use: Yes Alcohol type: beer alcohol intake frequency: a few times a week Hx Substance Use: Yes Substance Use Type Other:: 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 Last Used Substance: Unknown Physical Exam Vital Signs Last Vital Signs Temp 98.1 F 12/27/22 08:24 Pulse 65 12/27/22 08:24 Resp 18 12/27/22 08:24 BP 124/75 12/27/22 08:24 Pulse Ox 93 12/27/22 08:24 O2 Del Method 12/27/22 08:24 Testing Laboratory Results 12/27/22 05:37 12/27/22 05:37 PT 10.9 Seconds (9.0-12.0) 12/24/22 22:12 INR 1.0 (0.9-1.1) 12/24/22 22:12 APTT 23.6 Seconds (21.0-31.0) 12/24/22 22:12 Hemoglobin A1c 6.0 % (4.5-5.6) H 12/24/22 22:12 Urine Color Yellow 12/25/22 01:45 Urine Appearance Clear (Clear) 12/25/22 01:45 Urine pH 6.0 (4.5-7.5) 12/25/22 01:45 Ur Specific [place] 1.019 (1.000-1.030) 12/25/22 01:45 Urine Protein Trace (Negative) H 12/25/22 01:45 Urine Glucose (UA) Negative (Negative) 12/25/22 01:45 Urine Ketones Negative (Negative) 12/25/22 01:45 Urine Nitrite Negative (Negative) 12/25/22 01:45 Ur Leukocyte Esterase Negative (Negative) 12/25/22 01:45 Urine WBC (Auto) 1-5 /hpf (0-5) 12/25/22 01:45 Urine RBC (Auto) 0-4 /hpf (0-4) 12/25/22 01:45 U Hyaline Cast (Auto) 0 /lpf (0-5) 12/25/22 01:45 U Epithel Cells (Auto) 5-10 /lpf (0-5) H 12/25/22 01:45 Urine Bacteria (Auto) Negative (Negative) 12/25/22 01:45 12/24/22 22:12 Aerobic Blood Culture - Preliminary Blood Group G Beta Strep Anaerobic Blood Culture - Preliminary No growth in Anaerobic bottle after 48 hours. 12/25/22 22:56 Aerobic Blood Culture - Preliminary Blood No growth in Aerobic bottle after 24 hours. Anaerobic Blood Culture - Preliminary No growth in Anaerobic bottle after 24 hours. 12/25/22 23:07 Aerobic Blood Culture - Preliminary Blood No growth in Aerobic bottle after 24 hours. Anaerobic Blood Culture - Preliminary No growth in Anaerobic bottle after 24 hours. 12/24/22 22:15 Aerobic Blood Culture - Preliminary Blood No growth in Aerobic bottle after 48 hours. Anaerobic Blood Culture - Preliminary No growth in Anaerobic bottle after 48 hours. Electrocardiogram Date: 12/24/22 Findings: + NSR @
[2022-12-27] MEDS ORDERED: MIDAZOLAM HCL 1 MG/ML 2ML VIAL ONE (10:47)
[2022-12-27] MEDS ORDERED: PROPOFOL IV EMULSION 10 MG/ML 20 ML VIAL IV ONE (11:26)
[2022-12-27] MEDS ORDERED: LIDOCAINE 2% MPF LOCAL 5 ML VIAL INFIL ONE (11:26)
--- NOTE | 2022-12-27 11:28 | Post Operative Brief Note ---
Cardiology Brief Post Op Date of Surgery December 27, 2022 Pre & Post Diagnosis Operation Date: 12/27/22 11:00 Preprocedure diagnosis: Bacteremia, technically limited transthoracic echocardiogram Postprocedure diagnosis: No evidence of valvular vegetation Procedure Transesophageal echocardiogram procedure: After informed consent was obtained and a timeout was performed the patient was sedated with the assistance of the anesthesia service. Valvular structures were not well visualized with no evidence of vegetation. Digital Forensics Investigator Kaiden Jacobo DO Inhalation Therapy Aide Neris Hastings, RCC Estimated Blood Loss 0 Findings Consistent with Post-Op Diagnosis Anesthesia Type MAC Complications none Disposition Accompanied Patient To Recovery: Yes
--- NOTE | 2022-12-27 11:35 | Anesthesiology Progress Note ---
Date of Service December 27, 2022 Anesthesia Post Procedure Vital Signs Vital Signs: Temp Pulse Pulse Resp BP BP Pulse Ox 12/27/22 10:55 63 16 125/80 92 12/27/22 08:24 98.1 F 65 18 124/75 93 12/26/22 21:45 98.8 F 75 18 131/76 90 12/26/22 19:28 12/26/22 14:33 98.2 F 69 16 114/67 92 O2 Del Method 12/27/22 10:55 Room Air 12/27/22 08:24 Room Air 12/26/22 21:45 Room Air 12/26/22 19:28 Room Air 12/26/22 14:33 Room Air Pain Intensity Right Leg: Pain Intensity: 4 Transfer of Care Handoff Completed per policy Notes Mental Status: alert / awake / arousable and participated in evaluation Patient Amnestic to Procedure: Yes Nausea / Vomiting: adequately controlled Pain: adequately controlled Airway Patency, RR, SpO2: stable & adequate BP & HR: stable & adequate Hydration State: stable & adequate Anesthetic Complications: no major complications apparent and Pt Satisfied with anesthetic care
[2022-12-27] MEDS: cefTRIAXone SODIUM 2,000 MG in DEXTROSE 5% 50 ML IV SCH (13:53)
[2022-12-27] MEDS: ENOXAPARIN INJ 40 MG/0.4 ML SYR SQ SCH (15:40)
--- NOTE | 2022-12-27 16:44 | Hospitalist Progress Note ---
Date of Service December 27, 2022 Assessment & Plan (1) Cellulitis of right anterior lower leg: Plan: Patient is an inmate at the [facility] alf who presented with sudden onset RLE pain and redness. Did not meet sepsis criteria on presentation. RLE venous duplex negative for DVT CT RLE - 1. Osteoarthritis of the knee and ankle without acute fracture or dislocation identified. 2. Synovial thickening with small to moderate joint effusion of the knee, likely degenerative. Numerous intra-articular loose bodies. 3. Nonspecific subcutaneous edema of the lower leg. No fluid collections. Received IV Zosyn and Vanco in ED, subsequently started on doxycycline. Due to GPC bacteremia, changed to IV ceftriaxone on 12/25. Ortho consulted regarding prepatellar pain and swelling, small right knee effusion Patient does not have increased pain with ROM of right knee No surgical intervention planned by Ortho at this time (2) Bacteremia due to Streptococcus: Plan: 1 bottle growing group B beta strep On IV ceftriaxone (day 2) Repeat blood cultures NGTD STACIA today- no valvular vegetation or suggestion of endocarditis ID consult, input appreciated Will plan to dc on Rocephin 2gm Q24H x 2 weeks, planning dc for Saturday with alf. Appreciate CM Will coordinate picc tomorrow (3) Pre-diabetes: Plan: Mild hyperglycemia on presentation, Hgb A1c 6.0 Consider starting metformin at discharge (4) Barretts esophagus: Plan: Continue PPI (5) HTN (hypertension): Plan: BP controlled, holding HCTZ for now (6) COPD (chronic obstructive pulmonary disease): Plan: No signs of acute exacerbation, does not use routine inhalers (7) Hepatitis C: Plan: History of, s/p treatment per patient (8) Thrombocytopenia: Plan: Platelets 120 K --> 135K --> 153K History of hepatitis C, alcohol abuse LFTs WNL Monitor CBC DVT PROPHYLAXIS SQ Lovenox as platelet count has stabilized A total of 35 minutes were spent with greater than 50% of that time face to face with the patient, personally reviewing all current laboratories, imaging studies, past medication reconciliation, outpatient chart review, and discussion with specialists to collaborate care for the patient with attending and utilization of translation services. Please see attending documentation for corrections and/or additions. Admission and Anticipated Discharge Date Admission Date: December 24, 2022 Supervising Physician Co-Signing Physician Notes Patient was seen and examined independently. Chart reviewed. Case discussed with JEAN MARIE. Agree with assessment and plan as outlined above. Subjective Seen and examined in 324-1. No new complaints overnight. 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 Denies fever, chills, CP, SOB, N/V/D, abdominal pain, dysuria, diarrhea or constipation. Discussed STACIA results. Review of Systems Review of Systems: ROS per HPI, all other systems reviewed and negative Physical Exam Physical Exam: Gen: WD/WN, NAD, sitting in bed, A&Ox3 HEENT: Normocephalic, atraumatic, conjunctivae moist, sclerae anicteric, mucous membranes moist Lung: Clear to Auscultation bilaterally, no wheezes/rales/rhonchi Heart: Regular rate, regular rhythm, no murmurs, rubs, or gallops Abdomen: Soft, NT, ND +BS x 4 Extremities: + RLE with erythema, warm to touch and trace edema as previous; remains in outlined area, no drainage Skin: Warm, no rash Results & Data Results & Data ([facility]) Vital Signs (Past 12 Hours) Vital Signs Temp Pulse Pulse Resp BP BP Pulse Ox 12/27/22 15:32 36.7 C 73 18 133/84 92 12/27/22 12:30 36.6 C 67 20 100/64 92 12/27/22 11:50 67 16 124/80 93 12/27/22 11:35 68 16 104/75 95 12/27/22 11:20 65 16 119/76 95 12/27/22 10:55 63 16 125/80 92 12/27/22 08:24 36.7 C 65 18 124/75 93 O2 Del Method 12/27/22 15:32 Room Air 12/27/22 12:30 Room Air 12/27/22 11:50 Room Air 12/27/22 11:35 Room Air 12/27/22 11:20 Room Air 12/27/22 10:55 Room Air 12/27/22 08:24 Room Air Laboratory Results Short CBC 12/27/22 Range/Units 05:37 WBC 7.15 (4.8-10.8) K/ul Hgb 12.5 L (14.0-18.0) g/dl Hct 37.9 L (42.0-52.0) % Plt Count 153 (130-400) K/uL BMP 12/27/22 05:37 Sodium 138 Potassium 3.9 Chloride 104 Carbon Dioxide 29 BUN 22 Creatinine 1.06 Glucose 101 H Calcium 9.0 Diagnostic Findings Knee X-Ray 12/24/22 23:48 XR knee RT 3V HISTORY: 62 years-old Male R knee swelling acute pain and swelling of the right knee COMPARISON: CT right tibia and fibula same day TECHNIQUE: 3 views of the right knee FINDINGS: Moderate tricompartmental osteoarthritis with chondrocalcinosis. Intra-articular loose bodies measure up to approximately 2 cm. Postoperative changes with distal femoral and proximal tibial tunneling. Small joint effusion with mild circu mferential soft tissue prominence. IMPRESSION: 1. No acute fracture or dislocation. 2. Chondrocalcinosis with moderate osteoarthritis. 3. Numerous intra-articular loose bodies. 4. Small joint effusion. ACT 112: Negative or not required by law. The above report was generated using voice recognition software. It may contain grammatical, syntax or spelling errors. Electronically signed by: Gregory Rodriguez M.D. 12/25/2022 7:13 AM Vascular Ultrasound 12/25/22 00:00 US extremity non-vascular ltd HISTORY: 62 years-old Male R lower leg (below the knee) swelling ro absce acute pain and swelling of the lower leg COMPARISON: CT of same day TECHNIQUE: Multiple real-time sonographic images of the right lower leg soft tissues were obtained assessing grayscale appearance and color flow FINDINGS: Nonspecific subcutaneous edema. Postoperative cortical thickening of the proximal tibial diaphysis. No discrete fluid collections. IMPRESSION: Mild nonspecific subcutaneous edema. No discrete fluid collections. ACT 112: Negative or not required by law. The above report was generated using voice recognition software. It may contain grammatical, syntax or spelling errors. Electronically signed by: Gregory Rodriguez M.D. 12/25/2022 7:05 AM Venous Doppler Study 12/25/22 00:00 RIGHT LOWER EXTREMITY VENOUS DOPPLER CLINICAL HISTORY: Right lower extremity swelling COMPARISON STUDY: No previous studies for comparison. TECHNIQUE: Sonography of the deep venous system of the right lower extremity was performed. Compression and augmentation were evaluated. FINDINGS: The right common femoral, superficial femoral and popliteal veins were compressible. Augmentation was normal. Flow was shown within the deep calf vessels. Benign-appearing right inguinal lymph nodes are incidentally noted. IMPRESSION: No evidence of deep venous thrombus within the right lower extremity. ACT 112: Negative or not required by law. Electronically signed by: Artie Bennett M.D. 12/25/2022 7:[address] 12/25/22 03:32 CT tib/fib RT w con HISTORY: 62 years-old Male swelling ro abscess acute pain and swelling of the right knee COMPARISON: Knee radiographs and ultrasound studies of same day TECHNIQUE: Multiple axial CT images of the right tibia and fibula were obtained following the intravenous administration of 87 mL Optiray 350. A dose lowering technique was used consistent with the principals of ALARA. FINDINGS: Chondrocalcinosis with moderate tricompartmental osteoarthritis of the knee. Postoperative changes suggestive of prior ACL repair with tunneling of the distal femur and proximal tibia. Mild to moderate osteoarthritis of the ankle. 8 mm osteochondral defect of the lateral talar dome. No acute fracture, dislocation or osseous erosion identified. Synovial thickening with small to moderate joint effusion. Intra-articular loose bodies measure up to 1.9 cm within the lateral joint space. Numerous corticated ossifications are noted along the posterior aspect of the knee which may also represent loose bodies measuring up to approximately 2 cm. Mild diffuse subcutaneous edema of the imaged lower leg. No intramuscular fluid collections identified. IMPRESSION: 1. Osteoarthritis of the knee and ankle without acute fracture or dislocation identified. 2. Synovial thickening with small to moderate joint effusion of the knee, likely degenerative. Numerous intra-articular loose bodies. 3. Nonspecific subcutaneous edema of the lower leg. No fluid collections. ACT 112: Negative or not required by law. The above report was generated using voice recognition software. It may contain grammatical, syntax or spelling errors. Electronically signed by: Gregory Rodriguez M.D. 12/25/2022 7:04 AM
[2022-12-27] MEDS: MIRTAZAPINE TAB 15 MG TAB PO SCH (19:52)
[2022-12-28] MEDS: ACETAMINOPHEN 500 MG TAB PO SCH ×3 (00:07→15:24)
[2022-12-28] MEDS: PANTOprazole 40 MG TAB PO SCH (07:10)
[2022-12-28] MEDS: THIAMINE HCL 100 MG TAB PO SCH (07:10)
[2022-12-28] MEDS: FLUTICASONE FUROATE 100MCG 14 PUFFS/INHALER INH SCH (07:10)
[2022-12-28] MEDS: CEROVITE ADV FORMULA TAB PO SCH (07:10)
[2022-12-28] MEDS: FLUoxetine HCL 20 MG CAP PO SCH (07:10)
[2022-12-28 07:35] LABS: Basophils # (auto) 0.05 K/uL (0-0.2); Basophils % (auto) 0.8 %; Eosinophils # (auto) 0.36 K/uL (0-0.50); Eosinophils % (auto) 5.7 %; Hematocrit (blood only) 37.3 % (42.0-52.0); Hemoglobin 12.3 g/dl (14.0-18.0); Immature Granulocytes # (auto) 0.11 K/uL (0.01-0.20); Immature Granulocytes % (auto) 1.7 %; Lymphocytes # (auto) 1.42 K/uL (1.2-3.4); Lymphocytes % (auto) 22.6 %; Mean Corpuscular Hemoglobin 31.6 pg (25.0-34.0); Mean Corpuscular Volume 95.9 fL (80.0-100.0); Mean Platelet Volume 10.4 fL (9.4-12.4); Monocytes # (auto) 0.78 K/uL (0.11-0.59); Monocytes % (auto) 12.4 %; Neutrophils # (auto) 3.57 K/uL (1.40-6.50); Neutrophils % (auto) 56.8 %; Platelet Count 157 K/uL (130-400); RDW Standard Deviation 46.1 fL (36.4-46.3); Red Blood Count 3.89 M/uL (4.70-6.10); White Blood Count 6.29 K/ul (4.8-10.8)
[2022-12-28 08:21] LABS: Creatinine Clr Calc Pharmacy 88.9 ml/min; Potassium 3.9 mmol/L (3.5-5.1)
[2022-12-28 08:32] LABS: BUN Creatinine Ratio 21.2 (10-20); Calcium 8.9 mg/dl (8.5-10.1); Est GFR (African American) 80.3 ml/min; Est GFR (Non-African American) 69.3 ml/min
[2022-12-28] MEDS: cefTRIAXone SODIUM 2,000 MG in DEXTROSE 5% 50 ML IV SCH (11:52)
[2022-12-28] MEDS: traMADol HCL 50 MG TABLET PO PRN ×2 (11:55→20:14)
[2022-12-28] MEDS: ENOXAPARIN INJ 40 MG/0.4 ML SYR SQ SCH (13:02)
--- NOTE | 2022-12-28 15:53 | Hospitalist Progress Note ---
Date of Service December 28, 2022 Assessment & Plan (1) Cellulitis of right anterior lower leg: Plan: Patient is an inmate at the [facility] who presented with sudden onset RLE pain and redness. Did not meet sepsis criteria on presentation. RLE venous duplex negative for DVT CT RLE - 1. Osteoarthritis of the knee and ankle without acute fracture or dislocation identified. 2. Synovial thickening with small to moderate joint effusion of the knee, likely degenerative. Numerous intra-articular loose bodies. 3. Nonspecific subcutaneous edema of the lower leg. No fluid collections. Received IV Zosyn and Vanco in ED, subsequently started on doxycycline. Due to GPC bacteremia, changed to IV ceftriaxone on 12/25. Ortho consulted regarding prepatellar pain and swelling, small right knee effusion Patient does not have increased pain with ROM of right knee No surgical intervention planned by Ortho at this time (2) Bacteremia due to Streptococcus: Plan: 1 bottle growing group B beta strep On IV ceftriaxone (day 2) Repeat blood cultures NGTD STACIA 12/27/22- no valvular vegetation or suggestion of endocarditis ID consult, input appreciated Will plan to dc on Rocephin 2gm Q24H x 2 weeks, planning dc for [facility]. Appreciate CM Consent obtained for PICC (3) Pre-diabetes: Plan: Mild hyperglycemia on presentation, Hgb A1c 6.0 Consider starting metformin at discharge (4) Barretts esophagus: Plan: Continue PPI (5) HTN (hypertension): Plan: BP controlled, holding HCTZ for now (6) COPD (chronic obstructive pulmonary disease): Plan: No signs of acute exacerbation, does not use routine inhalers (7) Hepatitis C: Plan: History of, s/p treatment per patient (8) Thrombocytopenia: Plan: Platelets 120 K --> 135K --> 153K History of hepatitis C, alcohol abuse LFTs WNL Monitor CBC DVT PROPHYLAXIS SQ Lovenox Admission and Anticipated Discharge Date Admission Date: December 24, 2022 Subjective Feels well. Remains afebrile. Consented for PICC line Tolerating diet. Having BM. No chest pain/cough/nausea/vomiting Physical Exam Physical Exam: Pleasant, no acute distress, non toxic Respiratory: Breathing comfortably on room air, no wheezing/rhonchi Cardiovascular: Regular rate and rhythm, no murmurs/rubs Gastrointestinal (Abdomen): soft, non tender Musculoskeletal: right leg with significant redness (redness has remained within marked borders Neurologic: awake, alert, spontaneously moving extremities Results & Data Results & Data ([facility]) Vital Signs (Past 12 Hours) Vital Signs Temp Pulse Resp BP BP Pulse Ox O2 Del Method 12/28/22 15:32 37 C 72 16 118/72 94 Room Air 12/28/22 07:00 36.5 C 68 20 128/80 93 Room Air
[2022-12-28] MEDS: MIRTAZAPINE TAB 15 MG TAB PO SCH (20:15)
[2022-12-29] MEDS: FLUTICASONE FUROATE 100MCG 14 PUFFS/INHALER INH SCH (10:09)
[2022-12-29] MEDS: PANTOprazole 40 MG TAB PO SCH (10:09)
[2022-12-29] MEDS: FLUoxetine HCL 20 MG CAP PO SCH (10:09)
[2022-12-29] MEDS: THIAMINE HCL 100 MG TAB PO SCH (10:10)
[2022-12-29] MEDS: CEROVITE ADV FORMULA TAB PO SCH (10:10)
--- NOTE | 2022-12-29 10:33 | Discharge Summary ---
Date of Service December 29, 2022 Admission HPI Per Admitting Provider History obtained from patient and records. Medical history significant for COPD, hypertension, Ford's esophagus, past tobacco/alcohol abuse. 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 No recollection of trauma. No pruritus, no fever, no chills. Patient denies chest pain, SOB. No prior episodes. Patient later noted swelling in front of right knee not much worsened by motion. Zosyn administered at the ER. 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 He was pleasant and comfortable Breathing comfortably on room air, no wheezing/rhonchi/rales Regular rate and rhythm, no murmurs/rubs/gallops Abd soft, non tender Right leg erythema improved Discharge Data Allergies Allergy/AdvReac Type Severity Reaction Status Date / Time clams Allergy Unknown ON MED LIST Verified 12/24/22 23:21 spinach Allergy Unknown ON MED LIST Verified 12/24/22 23:21 Consultations 12/24/22 23:16 ED Decision to Admit Stat 12/24/22 23:55 Consult Orthopedic Surgery Routine 12/25/22 12:26 Consult Infectious Diseases Routine 12/26/22 16:20 Consult Cardiology Routine 12/27/22 09:39 Consult Anesthesiology Routine Procedures Performed Operation Date: 12/27/22 11:00 Actual Procedures p Echo Transesophageal - Kaiden Jacobo DO Ordered Studies 12/25/22 US extremity non-vascular ltd Urgent US venous doppler LE RT Urgent 12/25/22 03:32 CT tib/fib RT w con Stat Hospital Course (1) Cellulitis of right anterior lower leg: Patient is an inmate at the [facility] who presented with sudden onset RLE pain and redness. Did not meet sepsis criteria on presentation. RLE venous duplex negative for DVT CT RLE - 1. Osteoarthritis of the knee and ankle without acute fracture or dislocation identified. 2. Synovial thickening with small to moderate joint effusion of the knee, likely degenerative. Numerous intra-articular loose bodies. 3. Nonspecific subcutaneous edema of the lower leg. No fluid collections. Received IV Zosyn and Vancomycin in ED--> then doxycycline--> then switched to ceftriaxone 2gm IV daily 12/25/2022 Last day of antibiotic 01/08/2023. PICC line placed 12/28/2022. Weekly CBC and BMP while on antibiotics. Remove PICC line once course complete Ortho consulted regarding prepatellar pain and swelling, small right knee effusion Patient does not have increased pain with ROM of right knee No surgical intervention planned by Ortho at this time Keep right leg elevated when possible (2) Bacteremia due to Streptococcus: 1 bottle growing group B beta strep Repeat blood cultures no growth to date STACIA 12/27/22- no valvular vegetation or suggestion of endocarditis ID telemedicine consult Last day of antibiotic 01/08/2023. PICC line placed 12/28/22. Weekly CBC and BMP while on antibiotics. Remove PICC line once course complete (3) Pre-diabetes: Mild hyperglycemia on presentation, Hgb A1c 6.0 Diabetic diet (4) Barretts esophagus: Continue PPI (5) HTN (hypertension): Blood pressure well controlled while in the hospital on a heart healthy diet can resume HCTZ at discharge (6) COPD (chronic obstructive pulmonary disease): Remains stable (7) Hepatitis C: Has been treated per patient. Recommend outpatient follow up as needed (8) Thrombocytopenia: Remains stable Plan Signout provided to Arleth Espinal at [facility]. Patient accepted to return Total Time Total Time Spent Total Time Spent (In Minutes): 40 Discharge Plan Discharge Items [facility] Disposition: [facility] Reason For Visit: SEPSIS Discharge Diagnosis: Right Leg Cellulitis Strep Bacteremia Activity: As commented below Activity Comment: Keep right leg elevated Non-emergency contact: Primary Care Provider Call non-emergency contact if: you have any medication questions, your symptoms worsen and you have a fever Follow-up/Referrals: [facility] [Primary Care Provider] - Diet: Heart Healthy Addtl Attending Provider Instructions: Ceftriaxone 2 gram IV Q 24 hours. Last dose of Ceftriaxone 01/08/2023 Please pull PICC line when antibiotic course is complete Weekly CBC and BMP while on antibiotics Please return to hospital if fever/chills, nausea/vomiting or if right leg swelling/redness worsens Pending Studies at Discharge: No Stand-Alone Forms: My [facility] Skilled Items Patient informed of condition?: Yes Discharge Level of Care: Other Communicable Disease: No Discharge Prognosis: Stable Lines: PICC Urinary Catheter: No Medications and DC Order Prescriptions: New tramadol 50 mg Tablet 100 mg PO Q6H PRN (Reason: pain) 5 Days Qty: 10 0RF ceftriaxone 2 gram recon soln 2 g IV DAILY 10 Days Qty: 10 0RF Rx Instructions: Last day 01/08/2023. Continued naproxen 375 mg Tablet 375 mg PO BID PRN (Reason: Pain) acetaminophen [Tylenol Extra Strength] 500 mg Tablet 1,000 mg PO TID PRN (Reason: PAIN/FEVER) fluoxetine 20 mg Tablet 20 mg PO DAILY hydrochlorothiazide 25 mg Tablet 25 mg PO DAILY mirtazapine 15 mg Tablet 15 mg PO HS thiamine HCl (vitamin B1) [Vitamin B-1] 50 mg Tablet 100 mg PO DAILY hydroxyzine pamoate [Vistaril] 25 mg Capsule 25 mg PO DAILY PRN (Reason: Anxiety) multivitamin,tx-minerals Tablet 1 tab PO DAILY omeprazole 20 mg Tablet,Delayed Release (Dr/Ec) 20 mg PO DAILY Alvesco 80 mcg/actuation Hfa Aerosol Inhaler 1 puff INHALATION BID magnesium oxide 400 mg magnesium Tablet 400 mg PO DAILY Discharge Orders: Discharge Order (Routine); Ordered 12/29/22 Ordered By: Abdiel Trinh/Other Patient Handouts: Prediabetes, 5 Steps for Eating Healthier Admission Data Admit Date/Time: 12/24/22 23:52 Attending Provider: Abdiel [place] Admit Provider: Alvaro Gaspar Primary Care Provider: [facility] Other Providers: Aki Bolton ; Alvaro Gaspar ; Jorge Foss ; Nik Malone ; Jaylen Domingo I. ; Espinoza Reynolds II ; Sandie Graham ; Varun Johnson ; Orlando Buckley ; Ehsan Torres ; Luis Zhao ; Kaiden Jacobo ; Zoie Domingo ; Raghav Kearns
[2022-12-29] MEDS: cefTRIAXone SODIUM 2,000 MG in DEXTROSE 5% 50 ML IV SCH (12:31)
== END 2022-12-29 13:28 | DRG 872 ==
LOC: ED 21:50 → SUATTDRO 23:52 → 3E 23:52
DX: M17.11 Unilateral primary osteoarthritis, right knee; R78.81 Bacteremia; J44.9 Chronic obstructive pulmonary disease, unspecified; I10 Essential (primary) hypertension; B95.1 Streptococcus, group B, as the cause of diseases classified elsewhere; B19.20 Unspecified viral hepatitis C without hepatic coma; Z87.891 Personal history of nicotine dependence; K22.70 Barrett's esophagus without dysplasia; L03.115 Cellulitis of right lower limb; R73.03 Prediabetes; D69.6 Thrombocytopenia, unspecified